=== PATIENT | female | born 1940 | race Caucasian/White ===

== ENCOUNTER 2022-07-27 13:25 | Inpatient (IN) | payer OTHER ==
[~2022-07-27] VITALS: Ht 160 cm; Wt 50.8 kg
--- NOTE | 2022-07-27 13:25 | NUR ---
Patient to ER bed 2 to gown for evaluation. Side rails up. Report given to ANISA PETTY.
--- NOTE | 2022-07-27 13:30 | NUR ---
ER at bedside examining patient.
[2022-07-27 13:38] VITALS: BP_SYST 120
[2022-07-27 14:26] LABS: BASOPHILS % (AUTO) 0.4 % (0.0-2.0); EOSINOPHILS # (AUTO) 0.1 K/uL (0.0-0.4); EOSINOPHILS % (AUTO) 1.1 % (0.0-4.0); HEMATOCRIT 27.7 % (36-48); HEMOGLOBIN 9.4 g/dL (12.0-16.0); LYMPHOCYTES # (AUTO) 3.7 K/uL (1.0-5.5); LYMPHOCYTES % (AUTO) 35.8 % (20.5-51.5); MEAN CORPUSCULAR HEMOGLOBIN 34 pg (27-31); MEAN CORPUSCULAR HGB CONC 34 % (32-36); MEAN CORPUSCULAR VOLUME 99 fL (79.0-98.0); MONOCYTES # (AUTO) 0.4 K/uL (0.0-1.0); MONOCYTES % (AUTO) 4.2 % (1.7-9.3); NEUTROPHILS % (AUTO) 58.5 % (40.0-70.0); PLATELET COUNT (AUTO) 130 K/uL (130-430); RED BLOOD CELL COUNT(AUTO) 2.79 MIL/uL (4.2-6.2); RED CELL DISTRIBUTION WIDTH 17.7 % (9.0-15.0); WHITE BLOOD COUNT (AUTO) 10.3 K/uL (4.8-10.8)
--- NOTE | 2022-07-27 14:29 | NUR ---
Pt to radiology via [facility].
[2022-07-27 14:46] LABS: ALANINE AMINOTRANSFERASE 31 U/L (12-78); ANION GAP 10 (5-15); ASPARTATE AMINOTRANSFERASE 67 U/L (10-37); CHLORIDE 106 mmol/L (98-107); CREATININE 2.07 mg/dL (0.55-1.30); GLUCOSE 110 mg/dL (70-99); TOTAL BILIRUBIN 0.3 mg/dL (0.0-1.0); UREA NITROGEN, BLOOD 38 mg/dL (8-21)
--- NOTE | 2022-07-27 15:00 | NUR ---
# 22 gauge angiocath placed to LAC. Use of asceptic technique. Opsite placed over site. Blood return noted. Flushed with 10 cc of normal saline. No evidence of infiltration noted. Patient tolerated well.
[2022-07-27] MEDS ORDERED: NACL 0.9% 1,000 ML IV ONE (15:30)
--- NOTE | 2022-07-27 16:04 | NUR ---
Nasal specimen collected per bilateral nares delivered to lab.
[2022-07-27] MEDS ORDERED: ACETAMINOPHEN 325 MG TABLET PO ONE (17:30)
--- NOTE | 2022-07-27 18:40 | NUR ---
TYLENOL 650MG PO GIVEN AND TOLERATED WELL
--- NOTE | 2022-07-27 19:05 | NUR ---
ENDORSED PT TO MALINDA GLASGOW. ALL QUESTIONS AND CONCERNS ADDRESSED.
--- NOTE | 2022-07-27 19:11 | NUR ---
Admit bed requested Patient will be admitted to care of . Admitted to TELEMETRY unit. Diagnosis SYNCOPE Inpatient (Yes or No) YES Observation (Yes or No) NO Orientation concerns or request close to nursing station (Yes or No) NO Covid Status NEGATIVE On vent or bipap YES Isolation requirements NONE Needs a sitter NO From Home (Yes or if No enter name of facility) YES Requires Dialysis (Yes or No) NO Med Rec Completed (Yes of No) YES
--- NOTE | 2022-07-27 19:28 | NUR ---
ENDORSED PT TO PEE PETTY.
--- NOTE | 2022-07-27 19:53 | NUR ---
Patient will be admitted to care of MALINDA BLOCK. Admitted to TELEMETRY unit. Will go to room 118B. Belongings list completed. Complete and up to date summary report printed. SBAR report to be given at bedside with opportunity for questions.
--- NOTE | 2022-07-27 20:20 | NUR ---
ADMISSION NOTE Received patient from ER via gurney. Patient admitted with diagnosis of . Patient is awake, alert, oriented X 3. Patient oriented to hospital room, call light, toileting, pain management and safety-teach back done. Patient informed that I will be her nurse and that their room number is 114A. Personal belongings checked and Belongings List documented. Call light within reach.
[2022-07-27] MEDS ORDERED: ASPI-1155 PO (20:24)
[2022-07-27 20:26] VITALS: BP_SYST 126
--- NOTE | 2022-07-27 22:45 | NUR ---
PATIENT SEEN BY DR. BARRIOS WITH NEW ORDERS. WILL CONTINUE TO MONITOR.
[2022-07-27] MEDS ORDERED: KCL 20 mEq in D5/0.45NS 1000mL 1,000 ML IV ONE (23:11)
[2022-07-27] MEDS: KCL 20 mEq in D5/0.45NS 1000mL 1,000 ML IV SCH (23:12)
[2022-07-27] MEDS: ENOXAPARIN SODIUM 30 MG/0.3 ML SYRINGE SUBCUT SCH (23:12)
[2022-07-28 00:07] VITALS: BP_SYST 145
--- NOTE | 2022-07-28 06:52 | NUR ---
CLOSING NOTES PATIENT AWAKE, VITALS STABLE, DENIES PAIN AT THIS TIME. ALL NEEDS ATTENDED TO. SAFETY MEASURES MAINTAINED. BED IN LOW AND LOCKED POSITION. BED ALARM ON. CALL LIGHT PLACED WITHIN REACH.
--- NOTE | 2022-07-28 07:41 | NUR ---
RN OPENING NOTE PATIENT IS AWAKE AND ALERT LAYING IN BED. REPORT WAS ENDORSED BY NIGHT NURSE. PATIENT HAS NO COMPLAINTS AT THIS TIME EDUCATED KELLER MACHINE OPERATOR LIGHT FOR ASSISTANCE. CALL LIGHT IS WITH HER. NO OTHER NEEDS AT THIS TIME.
[2022-07-28 08:07] LABS: ANION GAP 10 (5-15); CALCIUM 8.7 mg/dL (8.4-11.0); CHLORIDE 107 mmol/L (98-107); CREATININE 1.76 mg/dL (0.55-1.30); GLUCOSE 119 mg/dL (70-99); UREA NITROGEN, BLOOD 27 mg/dL (8-21)
[2022-07-28 08:11] LABS: BASOPHILS % (AUTO) 0.1 % (0.0-2.0); EOSINOPHILS # (AUTO) 0.1 K/uL (0.0-0.4); EOSINOPHILS % (AUTO) 0.7 % (0.0-4.0); HEMATOCRIT 22.4 % (36-48); LYMPHOCYTES # (AUTO) 3.5 K/uL (1.0-5.5); LYMPHOCYTES % (AUTO) 31.6 % (20.5-51.5); MEAN CORPUSCULAR HEMOGLOBIN 33 pg (27-31); MEAN CORPUSCULAR HGB CONC 33 % (32-36); MEAN CORPUSCULAR VOLUME 98 fL (79.0-98.0); MONOCYTES # (AUTO) 0.5 K/uL (0.0-1.0); MONOCYTES % (AUTO) 4.3 % (1.7-9.3); NEUTROPHILS % (AUTO) 63.3 % (40.0-70.0); PLATELET COUNT (AUTO) 106 K/uL (130-430); RED BLOOD CELL COUNT(AUTO) 2.28 MIL/uL (4.2-6.2); RED CELL DISTRIBUTION WIDTH 17.5 % (9.0-15.0)
[2022-07-28 08:14] VITALS: BP_SYST 139
[2022-07-28 08:25] LABS: HEMOGLOBIN 7.5 g/dL (12.0-16.0)
[2022-07-28] MEDS: ASPIRIN 81 MG TAB.CHEW PO SCH (08:55)
--- NOTE | 2022-07-28 08:57 | NUR ---
MEDICATION PATIENTS SCHEDULED MEDICATION GIVEN PER ORDER. PATIENT IS AWAKE AND ALERT. PATIENT HAS FAMILY AT BEDSIDE. PATIENT IS CONFUSED DOES NOT KNOW HER LAST NAME. DOES NOT REMEMBER HER FAMILY BEING HERE LAST NIGHT. PATIENT AND FAMILY EDUCATED MOLYBDENUM STEAMER OPERATOR LIGHT FOR ASSISTANCE. CALL LIGHT IS WITH HER. BED ALARM IS ON.
[2022-07-28 08:58] LABS: TOTAL IRON BIND. CAPACITY 288 ug/dL (250-450)
[2022-07-28] MEDS: KCL 20 mEq in D5/0.45NS 1000mL 1,000 ML IV SCH (11:30)
--- NOTE | 2022-07-28 11:31 | NUR ---
IV FLUID PATIENTS IV FLUID GIVEN PER ORDER. PATIENT IS AWAKE AND ALERT LAYING IN BED NO COMPLAINTS AT THIS TIME. EDUCATED TO USE CALL LIGHT FOR ASSISTANCE, CALL LIGHT IS WITH HER. PATIENT HAS NO OTHER NEEDS AT THIS TIME.
[2022-07-28 11:48] VITALS: BP_SYST 137
--- NOTE | 2022-07-28 15:46 | NUR ---
CONSULTATION PAGED/CALLED Reason for Consultation: ANEMIA Person Who was Notified:CHRISTIANE Consulting Physician: CAPRICE Electrical Calibrator Specialty: Ordering Physician: LEANNE
--- NOTE | 2022-07-28 16:47 | NUR ---
PATIENTS DAUGHTER AT BEDSIDE BROUGHT SOME THINGS ADDED TO INVENTORY. ALSO BROUGHT THE MEDICATION PATIENT WAS SUPPOSE TO BE TAKING AT HOME WHICH IS ALLOPURINOL 100MG DAILY. PATIENT HAS NO OTHER NEEDS AT THIS TIME CALL LIGHT IS WITH HER.
[2022-07-28 18:28] VITALS: BP_SYST 134
--- NOTE | 2022-07-28 19:09 | NUR ---
RN CLOSING NOTE PATIENT PULLED OUT IV, IV CATHETER INTACT. APPLIED GAUZE AND TAPE TO INSERTION SITE. NEW IV SITE OBTAINED 22 G GOOD BLOOD RETURN FLUSHING WELL. REPORT WAS ENDORSED TO BRIGIDA. PATIENT HAS ALL SAFETY PRECAUTIONS IN PLACE. CALL LIGHT IS WITH HER EDUCATED TO USE FOR ASSISTANCE. NO OTHER NEEDS AT THIS TIME.
--- NOTE | 2022-07-28 19:35 | NUR ---
ROUNDS PATIENT RESTING COMFORTABLY IN BED, VITALS STABLE, DENIES PAIN AT THIS TIME. ASSESSMENT DONE AND DOCUMENTED. SEE FLOWSHEET. NEEDS ATTENDED TO. SAFETY MEASURES IN PLACED. CALL LIGHT PLACED WITHIN REACH.
[2022-07-28 20:00] VITALS: BP_SYST 139
[2022-07-28] MEDS: ENOXAPARIN SODIUM 30 MG/0.3 ML SYRINGE SUBCUT SCH (22:11)
[2022-07-29] VITALS: BP_SYST 135
--- NOTE | 2022-07-29 00:14 | NUR ---
PATIENT RESTING: Patient resting quietly. No acute distress noted. Vital signs within normal range.
[2022-07-29] MEDS: KCL 20 mEq in D5/0.45NS 1000mL 1,000 ML IV SCH ×3 (01:25→22:19)
[2022-07-29 06:24] LABS: BASOPHILS % (AUTO) 0.1 % (0.0-2.0); EOSINOPHILS # (AUTO) 0.1 K/uL (0.0-0.4); EOSINOPHILS % (AUTO) 0.7 % (0.0-4.0); HEMATOCRIT 23.1 % (36-48); HEMOGLOBIN 7.6 g/dL (12.0-16.0); LYMPHOCYTES # (AUTO) 3.8 K/uL (1.0-5.5); LYMPHOCYTES % (AUTO) 31.2 % (20.5-51.5); MEAN CORPUSCULAR HEMOGLOBIN 32 pg (27-31); MEAN CORPUSCULAR HGB CONC 33 % (32-36); MEAN CORPUSCULAR VOLUME 98 fL (79.0-98.0); MONOCYTES # (AUTO) 0.7 K/uL (0.0-1.0); MONOCYTES % (AUTO) 5.6 % (1.7-9.3); NEUTROPHILS # (AUTO) 7.6 K/uL (1.8-7.7); NEUTROPHILS % (AUTO) 62.4 % (40.0-70.0); PLATELET COUNT (AUTO) 113 K/uL (130-430); RED BLOOD CELL COUNT(AUTO) 2.36 MIL/uL (4.2-6.2); RED CELL DISTRIBUTION WIDTH 17.6 % (9.0-15.0); WHITE BLOOD COUNT (AUTO) 12.2 K/uL (4.8-10.8)
[2022-07-29 06:55] LABS: ANION GAP 10 (5-15); C-REACTIVE PROTEIN QUANT 7.7 mg/dL (0-0.5); CALCIUM 8.8 mg/dL (8.4-11.0); CHLORIDE 104 mmol/L (98-107); CREATININE 1.64 mg/dL (0.55-1.30); FREE T4 (FREE THYROXINE) 1.1 ng/dL (0.6-1.6); GLUCOSE 102 mg/dL (70-99); THYROID STIMULATING HORMONE 3.39 uIu/mL (0.34-4.82); UREA NITROGEN, BLOOD 21 mg/dL (8-21)
[2022-07-29 07:03] LABS: TOTAL IRON BIND. CAPACITY 282 ug/dL (250-450)
[2022-07-29 08:06] LABS: FOLATE (FOLIC ACID) 6.5 ng/mL (>3.0)
[2022-07-29 09:04] VITALS: BP_SYST 132
[2022-07-29 09:06] LABS: FERRITIN 829 ng/mL (15-150)
[2022-07-29] MEDS: ASPIRIN 81 MG TAB.CHEW PO SCH (09:06)
[2022-07-29 12:44] VITALS: BP_SYST 160
--- NOTE | 2022-07-29 15:21 | NUR ---
Dietitian Recommendations * Continue mechanical soft diet * Ordered Ensure HP BID * Encourage good PO intake GS, MPH, RD Please refer to RD Assessment for further details. Thanks! Addendum: 07/29/22 at 1522 by [address]ika Ordoñez RD Amended: Links added.
[2022-07-29 18:21] VITALS: BP_SYST 127
[2022-07-29 20:00] VITALS: BP_SYST 129
[2022-07-29] MEDS: ENOXAPARIN SODIUM 30 MG/0.3 ML SYRINGE SUBCUT SCH (22:19)
--- NOTE | 2022-07-29 23:15 | NUR ---
PAGED PAGED DOCTOR VASQUES
--- NOTE | 2022-07-29 23:30 | NUR ---
2ND PAGED FOR DOCTOR VASQUES
[2022-07-30 00:49] VITALS: BP_SYST 140
--- NOTE | 2022-07-30 06:45 | NUR ---
Miss Chery has been assessed as indicated. She continues to feel pain when repositioned. She has generalized soreness. However her right are seems to be especially tender when being repositioned. She had a small BM and stool for ocult blood was sent to the lab. She has been placed on a purewick and this has been successful. She is confused. She thinks she is at her home. The television seemed to increase her confusion. once it was turned off she was able to rest. She is resting quietly at this time. She has no s/s of distress or discomfort.
[2022-07-30 07:07] LABS: IMMUNOGLOBULIN G, SERUM 708 mg/dL (586-1602); IMMUNOGLOBULIN M, SERUM 841 mg/dL (26-217)
--- NOTE | 2022-07-30 07:15 | NUR ---
Handoff has been given to Lesli
--- NOTE | 2022-07-30 07:15 | NUR ---
opening note Received SBAR from night RN. Patient in bed, respirations even, non labored, bed in low and locked position, call light within reach, bed alarm on. 24 hour urine not started by night RN due to patient incontinent.
[2022-07-30 08:00] VITALS: BP_SYST 143
--- NOTE | 2022-07-30 08:00 | NUR ---
WILLIAMSON CATH: # 16 FR Williamson catheter with 10 cc bulb inserted with use of sterile technique. Bulb inflated with cc sterile water. Immediate return of 100 cc urine noted. Bedside drainage bag placed below level of bladder. Urine sample collected and sent to lab at 0815. Pt tolerated procedure well.
[2022-07-30 08:15] LABS: TOTAL IRON BIND. CAPACITY 239 ug/dL (250-450)
[2022-07-30] MEDS: ASPIRIN 81 MG TAB.CHEW PO SCH (08:48)
[2022-07-30 08:59] LABS: BILIRUBIN,URINE NEGATIVE (NEGATIVE); CLARITY/URINE CLEAR (CLEAR); COLOR,URINE YELLOW (YELLOW); GLUCOSE,URINE NEGATIVE (NEGATIVE); KETONES,URINE NEGATIVE (NEGATIVE); LEUKOCYTE ESTERASE ,URINE NEGATIVE (NEGATIVE); NITRITE, URINE NEGATIVE (NEGATIVE); PH,URINE 5.5 (5.0-8.0); PROTEIN URINE NEGATIVE (NEGATIVE); UROBILINOGEN,URINE 0.2 (0.2-1.0)
[2022-07-30 09:01] LABS: BLOOD, URINE TRACE (NEGATIVE)
[2022-07-30 09:34] LABS: BACTERIA,URINE None Seen /HPF (None Seen); WBC,URINE 0-3 /HPF (0-3)
[2022-07-30 13:00] VITALS: BP_SYST 119
[2022-07-30 13:06] LABS: A/G RATIO 0.7 (0.7-1.7); ALBUMIN 2.5 g/dL (2.9-4.4); ALPHA-1-GLOBULIN 0.4 g/dL (0.0-0.4); ALPHA-2-GLOBULIN 0.9 g/dL (0.4-1.0); GAMMA GLOBULIN 1.3 g/dL (0.4-1.8); GLOBULIN, TOTAL 3.6 g/dL (2.2-3.9); M-SPIKE 0.9 g/dL (Not Observed)
--- NOTE | 2022-07-30 15:00 | NUR ---
PHYSICAL THERAPY CO-SIGN The Physical Therapy Progress Notes documented by B2B Account Executive have been reviewed. Reviewed/Co-Signed by: Luis Felipe Tafoya Documentation Done by:MAE TIDWELL Addendum: 07/30/22 at 1500 by Luis Felipe Tafoya PT Amended: Links added.
[2022-07-30 17:11] VITALS: BP_SYST 119
--- NOTE | 2022-07-30 18:46 | NUR ---
md Dr Cassidy bedside examining patient
--- NOTE | 2022-07-30 19:36 | NUR ---
Closing note Provided SBAR to night RN. Patient in bed, respirations even non labored, bed in low and locked position, call light within reach, bed alarm on. IV running as ordered Cody draining by gravity. Endorsed 24 hour urine collection to Night RN.
[2022-07-30 20:00] VITALS: BP_SYST 98
[2022-07-30] MEDS: ENOXAPARIN SODIUM 30 MG/0.3 ML SYRINGE SUBCUT SCH (23:22)
[2022-07-31 00:37] VITALS: BP_SYST 117
[2022-07-31] MEDS: KCL 20 mEq in D5/0.45NS 1000mL 1,000 ML IV SCH ×2 (02:21→15:20)
[2022-07-31 06:37] LABS: BASOPHILS % (AUTO) 0.2 % (0.0-2.0); EOSINOPHILS # (AUTO) 0.2 K/uL (0.0-0.4); EOSINOPHILS % (AUTO) 1.6 % (0.0-4.0); LYMPHOCYTES # (AUTO) 4.2 K/uL (1.0-5.5); LYMPHOCYTES % (AUTO) 36.5 % (20.5-51.5); MEAN CORPUSCULAR HEMOGLOBIN 33 pg (27-31); MEAN CORPUSCULAR HGB CONC 33 % (32-36); MEAN CORPUSCULAR VOLUME 98 fL (79.0-98.0); MONOCYTES # (AUTO) 0.8 K/uL (0.0-1.0); MONOCYTES % (AUTO) 7.1 % (1.7-9.3); NEUTROPHILS # (AUTO) 6.3 K/uL (1.8-7.7); NEUTROPHILS % (AUTO) 54.6 % (40.0-70.0); PLATELET COUNT (AUTO) 120 K/uL (130-430); RED BLOOD CELL COUNT(AUTO) 2.01 MIL/uL (4.2-6.2); RED CELL DISTRIBUTION WIDTH 17.8 % (9.0-15.0); WHITE BLOOD COUNT (AUTO) 11.5 K/uL (4.8-10.8)
[2022-07-31 07:15] LABS: ANION GAP 10 (5-15); CALCIUM 8.4 mg/dL (8.4-11.0); CHLORIDE 107 mmol/L (98-107); CREATININE 1.54 mg/dL (0.55-1.30); GLUCOSE 94 mg/dL (70-99); UREA NITROGEN, BLOOD 25 mg/dL (8-21)
[2022-07-31 07:58] LABS: HEMATOCRIT 19.7 % (36-48); HEMOGLOBIN 6.6 g/dL (12.0-16.0)
[2022-07-31 08:00] VITALS: BP_SYST 137
[2022-07-31] MEDS: ASPIRIN 81 MG TAB.CHEW PO SCH (08:15)
--- NOTE | 2022-07-31 11:10 | NUR ---
CM went to see patient in room daughter from [place] at bedside. spoke with patient and her daughter about discharge planning options ,home, home with HH for PT, and SNF. patient does not want to go to SNF. Daughter at bedside states that pt is noncompliant with Dr appointments, medications. Lives in a multilevel home alone. Daughters that live close by come by to check on her weekly. will call family member Carline for more info
[2022-07-31 11:37] VITALS: BP_SYST 100
[2022-07-31 12:00] VITALS: BP_SYST 100
--- NOTE | 2022-07-31 14:08 | NUR ---
PATIENT UNABLE TO PARTICIPATE IN PT TREATMENT D/T LOW HGB: 6.6 AND LOW HCT: 19.7. HOLD PT TREATMENT UNTIL LABS IMPROVE.
[2022-07-31 16:00] VITALS: BP_SYST 109
[2022-07-31 16:28] LABS: TPROTEIN U,24HR 723.2 mg/24HR (0-130)
--- NOTE | 2022-07-31 19:00 | NUR ---
OUTCOME SUMMARY Pt a/ox2, forgetful. VSS. Afebrile. C/o pain to right hip upon movement. RA. Tolerating diet. 1 unit PRBCs given per MD orders, tolerated well. Cody catheter in place. IVFs continued. Daughter updated on point of care All needs met, safety and comfort measures maintained, call light within reach.
--- NOTE | 2022-07-31 19:40 | NUR ---
opening note Patient is awake and alert to name. She is stating she is ready to go home. I explained that she is in the hospital, she fell and she does not recall what happened. She is resting in bed, no distress. IVF infusing via IV to right wrist. Cody catheter drainage bag to gravity. safety precautions in place.
[2022-07-31 20:00] VITALS: BP_SYST 149
[2022-07-31 20:21] LABS: HEMATOCRIT 27.4 % (36-48); HEMOGLOBIN 9.2 g/dL (12.0-16.0)
--- NOTE | 2022-07-31 22:58 | NUR ---
med administered scheduled med, Lovenox,. Reviewed side effects, patient not have questions though she did agree. She was calm and cooperative. Provided with CHG bath, she did not want to turn and did yell, she said leave her alone, she will be ok.
[2022-07-31] MEDS: ENOXAPARIN SODIUM 30 MG/0.3 ML SYRINGE SUBCUT SCH (23:58)
[2022-08-01 00:05] VITALS: BP_SYST 150
--- NOTE | 2022-08-01 05:38 | NUR ---
labour market economist at bedside for blood draw
[2022-08-01 05:53] LABS: BASOPHILS % (AUTO) 0.4 % (0.0-2.0); EOSINOPHILS # (AUTO) 0.2 K/uL (0.0-0.4); EOSINOPHILS % (AUTO) 2.1 % (0.0-4.0); HEMATOCRIT 29.7 % (36-48); HEMOGLOBIN 9.9 g/dL (12.0-16.0); LYMPHOCYTES # (AUTO) 3.5 K/uL (1.0-5.5); LYMPHOCYTES % (AUTO) 33.1 % (20.5-51.5); MEAN CORPUSCULAR HEMOGLOBIN 31 pg (27-31); MEAN CORPUSCULAR HGB CONC 33 % (32-36); MEAN CORPUSCULAR VOLUME 92 fL (79.0-98.0); MONOCYTES # (AUTO) 0.7 K/uL (0.0-1.0); MONOCYTES % (AUTO) 6.6 % (1.7-9.3); NEUTROPHILS % (AUTO) 57.8 % (40.0-70.0); PLATELET COUNT (AUTO) 129 K/uL (130-430); RED BLOOD CELL COUNT(AUTO) 3.23 MIL/uL (4.2-6.2); RED CELL DISTRIBUTION WIDTH 20.8 % (9.0-15.0); WHITE BLOOD COUNT (AUTO) 10.5 K/uL (4.8-10.8)
[2022-08-01] MEDS: KCL 20 mEq in D5/0.45NS 1000mL 1,000 ML IV SCH ×2 (06:48→23:43)
--- NOTE | 2022-08-01 07:26 | NUR ---
closing note Endorsed care, patient stable
[2022-08-01 07:57] VITALS: BP_SYST 153
[2022-08-01] MEDS: ASPIRIN 81 MG TAB.CHEW PO SCH (09:11)
[2022-08-01 11:47] VITALS: BP_SYST 119
[2022-08-01 15:50] VITALS: BP_SYST 143
--- NOTE | 2022-08-01 15:53 | NUR ---
PHYSICAL THERAPY CO-SIGN The Physical Therapy Progress Notes documented by Senior Examiner have been reviewed. Reviewed/Co-Signed by: Luis Felipe Tafoya Documentation Done by:MAE TIDWELL Addendum: 08/01/22 at 1553 by Luis Felipe Tafoya PT Amended: Links added.
[2022-08-01 20:00] VITALS: BP_SYST 148
--- NOTE | 2022-08-01 21:09 | NUR ---
CONSULTATION PAGED/CALLED Reason for Consultation: []rt. humeral bone fracture Person Who was Notified: []Felipa Consulting Physician: [] Dr. GilT Manager Order Specialty: []Ortho Ordering Physician: []Dr. Cassidy
[2022-08-01] MEDS: ENOXAPARIN SODIUM 30 MG/0.3 ML SYRINGE SUBCUT SCH (23:25)
[2022-08-02 00:08] VITALS: BP_SYST 137
[2022-08-02 06:13] LABS: BASOPHILS % (AUTO) 0.4 % (0.0-2.0); EOSINOPHILS # (AUTO) 0.2 K/uL (0.0-0.4); HEMATOCRIT 25.8 % (36-48); HEMOGLOBIN 8.7 g/dL (12.0-16.0); LYMPHOCYTES # (AUTO) 3.3 K/uL (1.0-5.5); LYMPHOCYTES % (AUTO) 30.6 % (20.5-51.5); MEAN CORPUSCULAR HEMOGLOBIN 31 pg (27-31); MEAN CORPUSCULAR HGB CONC 34 % (32-36); MEAN CORPUSCULAR VOLUME 92 fL (79.0-98.0); MONOCYTES # (AUTO) 0.8 K/uL (0.0-1.0); MONOCYTES % (AUTO) 7.3 % (1.7-9.3); NEUTROPHILS # (AUTO) 6.4 K/uL (1.8-7.7); NEUTROPHILS % (AUTO) 59.7 % (40.0-70.0); PLATELET COUNT (AUTO) 130 K/uL (130-430); RED CELL DISTRIBUTION WIDTH 19.8 % (9.0-15.0); WHITE BLOOD COUNT (AUTO) 10.8 K/uL (4.8-10.8)
--- NOTE | 2022-08-02 08:00 | NUR ---
SUMMARY OF CARE 0800 - DAUGHTER AT BEDSIDE, MADE AWARE RE- PATIENT'S LATEST CONDITION. SPONGE BATH PROVIDED TO PATIENT, NOTED WITH INNER BUTTOCKS REDNESS, Z-GUARD APPLIED, TURNED AND REPOSITIONED. 1200- PATIENT'S DAUGHTER CAME AND STAYED WITH PATIENT, TURNED AND REPOSITIONED. 1600- SEEN BY DR BARRIOS 1800- PATIENT APPEAR ALERT AT THIS TIME, DAUGHTER AT BEDSIDE HELPING PATIENT FOR DINNER.
[2022-08-02 08:24] VITALS: BP_SYST 156
[2022-08-02] MEDS: ASPIRIN 81 MG TAB.CHEW PO SCH (09:46)
[2022-08-02 11:32] VITALS: BP_SYST 126
--- NOTE | 2022-08-02 15:12 | NUR ---
RN MEDICALLY CLEARED PATIENT FOR PT TREATMENT, HOWEVER PATIENT REFUSED STATING SHE IS TOO TIRED AND WANTS TO REST. SHE SAID SHE WILL PARTICIPATE TOMORROW. WILL TRY AGAIN TOMORROW, 08/03/22.
--- NOTE | 2022-08-02 16:45 | NUR ---
CORRECTION: Nutrition F/U Admitting Diagnosis Syncope Reviewed Pertinent Medical/Surgical Hx Medical Record Patient Medical History Comment: per [place] Consult 07/29: 81 YOF who was brought to the ED by ambulance from private home status post syncopal episode prior to arrival. Patient reports that she was outside walking back into her home when she felt dizzy and lightheaded and syncopized. Neighbors called 911 after they noticed the patient was found on the ground. The patient had had CT scan which was unremarkable and CT scan of the neck which showed lytic bone lesions therefore I was asked to evaluate.History is gathered from the daughter Carline chaves who stated that she did not have history of cancer in the past. She had the last colonoscopy more than 10 years ago and the last mammogram more than 3 years ago. She is not complaining of pain in the bone however she is complaining of limitation of movement in the right hip from arthritis. Per EMR review 08/02: bone survey results pending; suspect met CA or myeloma; ortho reported no fractured identified -- pt has R humerus w/ glenohumeral arthritis; no Sx indicated, however, ortho rec for OT. Subjective Information: RD rounded to pt's bedside this afternoon. Pt appeared lethargic and did not engage in much conversation. She denied any N/V/C/D. RD encouraged pt to try to consume more at meal times as well as drink Ensure ONS -- observed Ensure unopened at bedside table. Per EMR review, PO intakes fair, 55% average x10 meal records; abd is soft w/ active bowel sounds; last BM x1 /. Current Diet Order/Nutrition Support: Mechanical Soft, Ensure TID x4 days Patient/Significant Other Able To Verbalize Education Provided Not Indicated Pertinent Medications: lovenox, KCl/D5/NS at 75 ml/hr (306 kcal/day) Pertinent Labs: WBC 10.8 WNL, H/H 8.7 L/25.8 L, BUN 25 H, CRE 1.54 H, CRP 7.7 L Height (Feet) 5 feet Height (Inches) 3.00 inches Weight (Pounds) 112 pounds -- stable since 07/29 Patient Weight 50.802 kg Body Mass Index 19.84 kg/m2 %IBW 98 [place]/Adjusted Body Weight 115#/ 52 kg Recent Weight Change Yes - 2-3# per RN screen Weight Status Appropriate Food Allergies unable to assess Usual Diet At Home Regular per RN screen Skin Integrity Comment: Eugenio: 16 w/ no PIs or edema noted 08/02 Estimated Energy Expenditure (kcals/day) 3926-9826 kcal (30-35 kcal/kg CBW [51 kg] d/t possible mets CA) Estimated Protein Required (g/day) 51-77g (1-1.5 g/kg CBW d/t possible CA) Estimated Fluid Required (l/day) 1.5-1.7L (1mL/kcal maintenance) Problem/Etiology/Signs/Symptoms * Suboptimal nutritional intakes R/T metabolic demands AEB poor PO intake records. *Ongoing Expected Outcomes/Goals PO intake provides >85% estimated nutrient needs, nutrition-related labs trending WNL, continued skin integrity, BM q1-3 days Dietitian Recommendations * Continue Mechanical Soft w/ Ensure BID (ONS yields additional 600 kcal/day, 40 gm protein/day) * Encourage good PO intakes Follow Up Mod Risk: F/U in 3-5 days
--- NOTE | 2022-08-02 16:45 | NUR ---
Nutrition F/U Admitting Diagnosis Syncope Reviewed Pertinent Medical/Surgical Hx Medical Record Patient Medical History Comment: per [place] Consult 07/29: 81 YOF who was brought to the ED by ambulance from private home status post syncopal episode prior to arrival. Patient reports that she was outside walking back into her home when she felt dizzy and lightheaded and syncopized. Neighbors called 911 after they noticed the patient was found on the ground. The patient had had CT scan which was unremarkable and CT scan of the neck which showed lytic bone lesions therefore I was asked to evaluate.History is gathered from the daughter Carline chaves who stated that she did not have history of cancer in the past. She had the last colonoscopy more than 10 years ago and the last mammogram more than 3 years ago. She is not complaining of pain in the bone however she is complaining of limitation of movement in the right hip from arthritis. Per EMR review 08/02: bone survey results pending; suspect met CA or myeloma; ortho reported no fractured identified -- pt has R humerus w/ glenohumeral arthritis; no Sx indicated, however, ortho rec for OT. Subjective Information: RD rounded to pt's bedside this afternoon. Pt appeared lethargic and did not engage in much conversation. She denied any N/V/C/D. RD encouraged pt to try to consume more at meal times as well as drink Ensure ONS -- observed Ensure unopened at bedside table. Per EMR review, PO intakes fair, 55% average x10 meal records; abd is soft w/ active bowel sounds; last BM x1 /5. Current Diet Order/Nutrition Support: Mechanical Soft, Ensure TID x4 days Patient/Significant Other Able To Verbalize Education Provided Not Indicated Pertinent Medications: lovenox, KCl/D5/NS at 75 ml/hr (306 kcal\da) Pertinent Labs WBC 12.2 H, H/H 7.6 L/23.1L, BUN 21 WNL, Cre 1.64 H, CRP 7.7 H Height (Feet) 5 feet Height (Inches) 3.00 inches Weight (Pounds) 112 pounds Weight (Calculated Kilograms) 50.762876 kilograms Patient Weight 50.802 kg Body Mass Index 19.84 kg/m2 %IBW 98 [place]/Adjusted Body Weight 115#/ 52 kg Recent Weight Change Yes - 2-3# per RN screen Weight Status Appropriate Food Allergies unable to assess Usual Diet At Home Regular per RN screen Skin Integrity Comment: Eugenio: 16 w/ no PIs or edema noted 4/3. Current % PO Poor avg of 42% x 3 meals Estimated Energy Expenditure (kcals/day) 0888-4519 kcal (30-35 kcal/kg CBW [51 kg] d/t possible mets CA) Estimated Protein Required (g/day) 51-77g (1-1.5 g/kg CBW d/t possible CA) Estimated Fluid Required (l/day) 1.5-1.7L (1mL/kcal maintenance) Problem/Etiology/Signs/Symptoms * Suboptimal nutritional intakes R/T metabolic demands AEB poor PO intake records. *Ongoing Expected Outcomes/Goals PO intake provides >85% estimated nutrient needs, nutrition-related labs trending WNL, continued skin integrity, BM q1-3 days Dietitian Recommendations * Continue Mechanical Soft w/ Ensure BID (ONS yields additional 600 kcal/day, 40 gm protein/day) * Encourage good PO intakes Follow Up Mod Risk: F/U in 3-5 days Addendum: 08/03/22 at [address] PLEASE DISREGARD NOTE. SUBMITTED PRIOR TO COMPLETION.
--- NOTE | 2022-08-02 16:50 | NUR ---
Dietitian Recommendations * Continue Mechanical Soft w/ Ensure BID (ONS yields additional 600 kcal/day, 40 gm protein/day) * Encourage good PO intakes LP, MS, RD Please refer to Nutrition F/U for details.
[2022-08-02 17:29] VITALS: BP_SYST 126
[2022-08-02] MEDS: KCL 20 mEq in D5/0.45NS 1000mL 1,000 ML IV SCH ×2 (18:00→22:21)
[2022-08-02] MEDS: ENOXAPARIN SODIUM 30 MG/0.3 ML SYRINGE SUBCUT SCH (22:21)
[2022-08-02 23:41] VITALS: BP_SYST 124
[2022-08-03 04:34] VITALS: BP_SYST 130
--- NOTE | 2022-08-03 05:26 | NUR ---
pt vital are stable . no signs of distress. no complain of chest pain or shortness of breath. pt lies comfrtable in her bed. comfort measures are provided. scheduled medication are administered
[2022-08-03 07:45] LABS: ANION GAP 10 (5-15); CALCIUM 8.7 mg/dL (8.4-11.0); CHLORIDE 105 mmol/L (98-107); CREATININE 1.51 mg/dL (0.55-1.30); GLUCOSE 108 mg/dL (70-99); UREA NITROGEN, BLOOD 29 mg/dL (8-21)
[2022-08-03 07:53] LABS: BASOPHILS % (AUTO) 0.3 % (0.0-2.0); EOSINOPHILS # (AUTO) 0.2 K/uL (0.0-0.4); EOSINOPHILS % (AUTO) 2.3 % (0.0-4.0); HEMATOCRIT 26.4 % (36-48); HEMOGLOBIN 8.6 g/dL (12.0-16.0); LYMPHOCYTES # (AUTO) 3.7 K/uL (1.0-5.5); LYMPHOCYTES % (AUTO) 35.6 % (20.5-51.5); MEAN CORPUSCULAR HEMOGLOBIN 31 pg (27-31); MEAN CORPUSCULAR HGB CONC 33 % (32-36); MEAN CORPUSCULAR VOLUME 94 fL (79.0-98.0); MONOCYTES # (AUTO) 0.7 K/uL (0.0-1.0); MONOCYTES % (AUTO) 6.4 % (1.7-9.3); NEUTROPHILS # (AUTO) 5.8 K/uL (1.8-7.7); NEUTROPHILS % (AUTO) 55.4 % (40.0-70.0); PLATELET COUNT (AUTO) 146 K/uL (130-430); RED BLOOD CELL COUNT(AUTO) 2.81 MIL/uL (4.2-6.2); RED CELL DISTRIBUTION WIDTH 20.3 % (9.0-15.0); WHITE BLOOD COUNT (AUTO) 10.5 K/uL (4.8-10.8)
[2022-08-03] MEDS: ASPIRIN 81 MG TAB.CHEW PO SCH (09:31)
--- NOTE | 2022-08-03 11:02 | NUR ---
>>>PT NOTES<<< PATIENT REFUSED PHYSICAL THERAPY TODAY DUE TO C/O TIREDNESS, AGREED TO PARTICIPATE NEXT TIME, WAS SEEN BY ORTHO MD 08/02/22 WITH NOTED NO FRACTURE. WILL FOLLOW UP ON 08/05/22. REC: SNF ONCE MEDICALLY CLEARED.
[2022-08-03 11:25] VITALS: BP_SYST 123
[2022-08-03 15:14] VITALS: BP_SYST 136
[2022-08-03] MEDS: KCL 20 mEq in D5/0.45NS 1000mL 1,000 ML IV SCH (16:43)
[2022-08-03 20:00] VITALS: BP_SYST 127
[2022-08-03] MEDS: ENOXAPARIN SODIUM 30 MG/0.3 ML SYRINGE SUBCUT SCH (23:59)
[2022-08-04 02:51] VITALS: BP_SYST 136
[2022-08-04] MEDS: KCL 20 mEq in D5/0.45NS 1000mL 1,000 ML IV SCH ×2 (04:17→15:34)
[2022-08-04 07:29] LABS: BASOPHILS % (AUTO) 0.3 % (0.0-2.0); EOSINOPHILS # (AUTO) 0.2 K/uL (0.0-0.4); EOSINOPHILS % (AUTO) 2.4 % (0.0-4.0); LYMPHOCYTES # (AUTO) 3.5 K/uL (1.0-5.5); LYMPHOCYTES % (AUTO) 37.3 % (20.5-51.5); MEAN CORPUSCULAR HEMOGLOBIN 31 pg (27-31); MEAN CORPUSCULAR HGB CONC 33 % (32-36); MEAN CORPUSCULAR VOLUME 93 fL (79.0-98.0); MONOCYTES # (AUTO) 0.7 K/uL (0.0-1.0); PLATELET COUNT (AUTO) 160 K/uL (130-430); RED BLOOD CELL COUNT(AUTO) 2.58 MIL/uL (4.2-6.2); RED CELL DISTRIBUTION WIDTH 19.9 % (9.0-15.0); WHITE BLOOD COUNT (AUTO) 9.5 K/uL (4.8-10.8)
[2022-08-04 08:00] VITALS: BP_SYST 139
[2022-08-04 08:14] LABS: ALANINE AMINOTRANSFERASE 80 U/L (12-78); ANION GAP 9 (5-15); ASPARTATE AMINOTRANSFERASE 118 U/L (10-37); CALCIUM 8.8 mg/dL (8.4-11.0); CHLORIDE 107 mmol/L (98-107); CREATININE 1.42 mg/dL (0.55-1.30); GLUCOSE 105 mg/dL (70-99); TOTAL BILIRUBIN 0.4 mg/dL (0.0-1.0); UREA NITROGEN, BLOOD 29 mg/dL (8-21)
[2022-08-04] MEDS: ASPIRIN 81 MG TAB.CHEW PO SCH (10:06)
[2022-08-04 14:54] VITALS: BP_SYST 121
[2022-08-04 20:10] VITALS: BP_SYST 128
[2022-08-04] MEDS: ENOXAPARIN SODIUM 30 MG/0.3 ML SYRINGE SUBCUT SCH (23:26)
[2022-08-05] VITALS: BP_SYST 143
--- NOTE | 2022-08-05 05:22 | NUR ---
Pt awake and oriented x 2. Pt refused to turn. F/c with clear yellow urine. No BM. Continued IVF D51/2NS+ 20 meq kcl at 75 ml/hr. No s/sx of bleeding. Need stool ob. V/s stable afebrile.
[2022-08-05] MEDS: KCL 20 mEq in D5/0.45NS 1000mL 1,000 ML IV SCH (05:52)
[2022-08-05 06:03] LABS: BASOPHILS % (AUTO) 0.3 % (0.0-2.0); EOSINOPHILS # (AUTO) 0.3 K/uL (0.0-0.4); EOSINOPHILS % (AUTO) 2.3 % (0.0-4.0); HEMATOCRIT 24.1 % (36-48); HEMOGLOBIN 7.9 g/dL (12.0-16.0); LYMPHOCYTES # (AUTO) 3.9 K/uL (1.0-5.5); LYMPHOCYTES % (AUTO) 34.2 % (20.5-51.5); MEAN CORPUSCULAR HEMOGLOBIN 30 pg (27-31); MEAN CORPUSCULAR HGB CONC 33 % (32-36); MEAN CORPUSCULAR VOLUME 92 fL (79.0-98.0); MONOCYTES # (AUTO) 0.7 K/uL (0.0-1.0); MONOCYTES % (AUTO) 6.5 % (1.7-9.3); NEUTROPHILS # (AUTO) 6.5 K/uL (1.8-7.7); NEUTROPHILS % (AUTO) 56.7 % (40.0-70.0); PLATELET COUNT (AUTO) 175 K/uL (130-430); RED BLOOD CELL COUNT(AUTO) 2.61 MIL/uL (4.2-6.2); RED CELL DISTRIBUTION WIDTH 18.9 % (9.0-15.0); WHITE BLOOD COUNT (AUTO) 11.4 K/uL (4.8-10.8)
[2022-08-05 06:42] LABS: ANION GAP 7 (5-15); CALCIUM 8.7 mg/dL (8.4-11.0); CHLORIDE 106 mmol/L (98-107); CREATININE 1.39 mg/dL (0.55-1.30); GLUCOSE 97 mg/dL (70-99); UREA NITROGEN, BLOOD 27 mg/dL (8-21)
[2022-08-05] MEDS: ASPIRIN 81 MG TAB.CHEW PO SCH (08:54)
[2022-08-05 11:23] VITALS: BP_SYST 120
--- NOTE | 2022-08-05 11:31 | NUR ---
LUIS called patient daughter Carline to clarify SNF choice [facility]- need more info. LUIS suggested [facility]. [facility] to call LUIS back
[2022-08-05 11:56] LABS: KAPPA & LAMBDA LT CHAIN RATIO 2.31 ratio (0.26-1.65)
--- NOTE | 2022-08-05 14:09 | NUR ---
Patient daughter Carline called to choose [facility]. DC referral packet faxed f# [phone]
--- NOTE | 2022-08-05 15:31 | NUR ---
CM faxed DC packet to [facility] and [facility] states that they still have not received the fax . CM to fax referral packet to patient second choice [facility] in [place]. f# [phone]
--- NOTE | 2022-08-05 16:02 | NUR ---
[facility] received CM referral fax; are reviewing packet. [facility] in [place] accepted patient and gave her a bed. Daughter Carline updated on discharge planning status and she still prefers [facility]. Dr Cassidy notified of accepting SNF; asked if he is ready to discharge patient. awaiting response
--- NOTE | 2022-08-05 16:27 | NUR ---
[facility] cannot accept patient as they cannot bill Medicare . Will let daughter know. CM reached out to Dr Salvador who is ok to discharge patient home; follow up with his office.
--- NOTE | 2022-08-05 16:59 | NUR ---
Patient accepted at [facility] in [place]. room 52. Rachel at [facility] to arrange transport and to call RN for details. RN notified and will call MD for final discharge order. family notified.
[2022-08-05 17:28] VITALS: BP_SYST 124
--- NOTE | 2022-08-05 18:00 | NUR ---
WILLIAMSON CATHETER AND IV REMOVED. PATIENT FOR DISCHARGE TO SNF TODAY. PATIENT IN NO APPARENT DISTRESS.
[2022-08-05 18:05] VITALS: BP_SYST 124
--- NOTE | 2022-08-06 11:40 | NUR ---
PHYSICAL THERAPY CO-SIGN The Physical Therapy Progress Notes documented by Manager Workers Compensation have been reviewed. Reviewed/Co-Signed by: Luis Felipe Tafoya Documentation Done by:MAE TIDWELL Addendum: 08/06/22 at 1141 by Luis Felipe Tafoya PT Amended: Links added.
== END 2022-08-05 20:02 | DRG 640 ==
LOC: SED 13:25 → EDBD 13:25 → STU 19:13 → SMU 07-30 20:00
PROVIDERS: ADMIT Family Medicine; ATTEND Family Medicine
PROC: 30233N1 Transfusion of Nonautologous Red Blood Cells into Peripheral Vein, Percutaneous Approach (ICD-10-PCS; principal; 2022-07-31)
DX: E86.0 Dehydration (principal); N17.0 Acute kidney failure with tubular necrosis; G93.40 Encephalopathy, unspecified; C41.2 Malignant neoplasm of vertebral column; E46 Unspecified protein-calorie malnutrition; Z68.1 Body mass index [BMI] 19.9 or less, adult; D47.2 Monoclonal gammopathy; D64.9 Anemia, unspecified; D69.6 Thrombocytopenia, unspecified; Z20.822 Contact with and (suspected) exposure to COVID-19; M13.811 Other specified arthritis, right shoulder; M89.9 Disorder of bone, unspecified; Z88.0 Allergy status to penicillin; Z79.899 Other long term (current) drug therapy; Z79.82 Long term (current) use of aspirin
CPT/HCPCS: 36415; 70450-TC; 71045; 72125-TC; 73060-TC; 73502; 76376; 77075; 80048; 80053; 81000; 82272; 82550; 82607; 82728; 82746; 82784; 83540; 83550; 83735; 83880; 84155; 84156; 84165; 84439; 84443; 84484; 85018; 85025; 86140; 86886; 86900; 86901; 86920; 93005; 96360; 97110-GP; 97112-GP; 97116-GP; 97530-GP; 99285; G0378; J1650; P9021